=== PATIENT | male | born 1955 | race Asian ===

== ENCOUNTER 2017-12-27 23:18 | Emergency (ER) | payer OTHER ==
[~2017-12-27] VITALS: Ht 182.9 cm; Wt 88.9 kg
[2017-12-27 23:25] VITALS: TEMP 98.8
[2017-12-28 00:04] LABS: PLATELET COUNT 176 K/uL (142-355)
[2017-12-28 00:38] LABS: PARTIAL THROMBOPLASTIN TIME 24.7 SECONDS (24.5-33.6)
[2017-12-28 00:45] LABS: POTASSIUM 3.7 mmol/L (3.6-5.2); SODIUM 137 mmol/L (136-145)
[2017-12-28 05:03] LABS: PARTIAL THROMBOPLASTIN TIME 29.4 SECONDS (24.5-33.6)
[2017-12-28 07:59] VITALS: BP 132/82
[2017-12-31] MEDS ORDERED: LISI20TA11 PO (14:04)
[2017-12-31] MEDS ORDERED: Aspirin 325 MG TABLET PO (14:04)
[2017-12-31] MEDS ORDERED: NITR0.4S SL (14:04)
[2018-01-05] MEDS ORDERED: HYDR10TA47A PO (15:37)
== END 2017-12-28 08:05 | disposition home or self-care (01) ==
LOC: ED 23:18
PROVIDERS: Specialist
DX: R07.89 Other chest pain (principal); R94.31 Abnormal electrocardiogram [ECG] [EKG]; R00.1 Bradycardia, unspecified
CPT/HCPCS: 36415; 80053; 82550; 82553; 83880; 84484; 85027; 85379; 85610; 85730; 93005; 96365; 96366; 99283; 99284; J1650; J2270; J2405; J3490; Q9963

== ENCOUNTER 2017-12-30 10:48 | Emergency (ER) | payer OTHER ==
[~2017-12-30] VITALS: Ht 182.9 cm; Wt 89.8 kg
[2017-12-30 10:53] VITALS: TEMP 98.2
[2017-12-30 11:29] LABS: PLATELET COUNT 162 K/uL (142-355)
[2017-12-30 11:34] LABS: POTASSIUM 3.9 mmol/L (3.6-5.2); SODIUM 134 mmol/L (136-145)
[2017-12-30 13:00] VITALS: BP 158/94
[2017-12-31] MEDS ORDERED: LISI20TA11 PO (14:04)
[2017-12-31] MEDS ORDERED: Aspirin 325 MG TABLET PO (14:04)
[2017-12-31] MEDS ORDERED: NITR0.4S SL (14:04)
[2018-01-05] MEDS ORDERED: HYDR10TA47A PO (15:37)
== END 2017-12-30 13:14 | disposition home or self-care (01) ==
LOC: ED 10:48
PROVIDERS: Family Medicine
DX: R07.89 Other chest pain (principal)
CPT/HCPCS: 36415; 80053; 82550; 84484; 85027; 93005; 96374; 96375; 99284; J0360; J2405

== ENCOUNTER 2018-01-02 20:05 | Emergency (ER) | payer OTHER ==
[~2018-01-02] VITALS: Ht 182.9 cm; Wt 89.8 kg
[~2018-01-02 20:05] MED LIST: Aspirin 325 MG TABLET PO; LISI20TA11 PO; NITR0.4S SL
[2018-01-02 20:59] LABS: PLATELET COUNT 163 K/uL (142-355)
[2018-01-02 21:07] LABS: POTASSIUM 3.4 mmol/L (3.6-5.2)
[2018-01-02 21:21] LABS: PARTIAL THROMBOPLASTIN TIME 27.1 SECONDS (24.5-33.6)
[2018-01-02 22:29] VITALS: BP 154/94; TEMP 98.6
[2018-01-05] MEDS ORDERED: HYDR10TA47A PO (15:37)
== END 2018-01-02 22:31 | disposition home or self-care (01) ==
LOC: ED 20:05
PROVIDERS: Specialist
DX: G89.29 Other chronic pain (principal); M54.89 Other dorsalgia; R07.89 Other chest pain
CPT/HCPCS: 36415; 80053; 80307; 82550; 83880; 84484; 85027; 85379; 85610; 85730; 93005; 99283

== ENCOUNTER 2018-01-12 22:45 | Emergency (ER) | payer OTHER ==
[~2018-01-12] VITALS: Ht 182.9 cm; Wt 89.8 kg
[~2018-01-12 22:45] MED LIST changes: +HYDR10TA47A PO
[2018-01-12 23:36] LABS: PLATELET COUNT 172 K/uL (142-355)
[2018-01-13 00:03] LABS: POTASSIUM 3.4 mmol/L (3.6-5.2); SODIUM 135 mmol/L (136-145)
[2018-01-13 03:45] VITALS: BP 173/98; TEMP 98
== END 2018-01-13 03:50 | disposition home or self-care (01) ==
LOC: ED 22:45
DX: R07.89 Other chest pain (principal); M54.89 Other dorsalgia
CPT/HCPCS: 36415; 80053; 82550; 82553; 84484; 85027; 85379; 93005; 99284

== ENCOUNTER 2018-01-20 14:05 | Emergency (ER) | payer OTHER ==
[~2018-01-20] VITALS: Ht 182.9 cm; Wt 89.8 kg
[2018-01-20 14:16] VITALS: BP 171/103; TEMP 98.1
[2018-01-20 14:36] LABS: PLATELET COUNT 177 K/uL (142-355)
[2018-01-20 14:48] LABS: PARTIAL THROMBOPLASTIN TIME 19.4 SECONDS (24.5-33.6)
[2018-01-20 14:58] LABS: POTASSIUM 5.2 mmol/L (3.6-5.2)
== END 2018-01-20 16:29 | disposition home or self-care (01) ==
LOC: ED 14:05
PROVIDERS: Emergency Medicine
DX: R07.89 Other chest pain (principal)
CPT/HCPCS: 36415; 80053; 82550; 82553; 83880; 84484; 85027; 85379; 85610; 85730; 93005; 99283

== ENCOUNTER 2018-01-29 23:27 | Observation (INO) | payer OTHER ==
[~2018-01-29] VITALS: Ht 182.9 cm; Wt 84.4 kg
[2018-01-29 23:40] VITALS: BP 143/93; TEMP 98.3
[2018-01-30 00:13] LABS: PLATELET COUNT 169 K/uL (142-355)
[2018-01-30 00:24] LABS: PARTIAL THROMBOPLASTIN TIME 23.7 SECONDS (24.5-33.6)
[2018-01-30 00:31] LABS: POTASSIUM 3.6 mmol/L (3.6-5.2)
[2018-01-30 01:52] VITALS: BP 129/81; TEMP 98.2; Ht 182.9 cm; Wt 84.4 kg
[2018-01-30 04:00] VITALS: BP 126/79; TEMP 98.1
[2018-01-30 08:00] VITALS: BP 138/94; TEMP 97.9
--- NOTE | 2018-01-30 10:35 | NUR ---
IV D/C'D WITH TIP INTACT PRESSURE DRESSING APPLIED. D/C INSTRUCTIONS GIVEN VERBALLY. PT D/C'D HOME VIA WC IN STABLE COND.,
== END 2018-01-30 10:35 | disposition home or self-care (01) ==
LOC: ED 23:27 → MED/SURG 01-30 01:08
DX: R07.89 Other chest pain (principal); M54.5 Low back pain; I10 Essential (primary) hypertension
CPT/HCPCS: 36415; 36591; 80053; 82550; 84484; 85027; 85610; 85730; 93005; 99220; 99284; G0378; J1650

== ENCOUNTER 2018-02-19 01:41 | Observation (INO) | payer OTHER ==
[~2018-02-19] VITALS: Ht 182.9 cm; Wt 84.8 kg
[2018-02-19 01:51] VITALS: BP 134/83; TEMP 97.3
[2018-02-19 02:47] LABS: PLATELET COUNT 78 K/uL (142-355)
[2018-02-19 02:58] VITALS: BP 132/78
[2018-02-19 03:18] LABS: POTASSIUM 3.9 mmol/L (3.6-5.2); SODIUM 139 mmol/L (136-145)
[2018-02-19 04:08] VITALS: BP 139/81
[2018-02-19 04:48] VITALS: BP 146/87; TEMP 97.8; Ht 182.9 cm; Wt 84.8 kg
[2018-02-19 08:00] VITALS: BP 213/84; TEMP 97.8
[2018-02-19 11:32] VITALS: BP 154/90; TEMP 98.1
== END 2018-02-19 15:46 | disposition short-term general hospital (02) ==
LOC: ED 01:41 → MED/SURG 03:45
DX: R07.89 Other chest pain (principal); I10 Essential (primary) hypertension; B19.20 Unspecified viral hepatitis C without hepatic coma; N40.0 Benign prostatic hyperplasia without lower urinary tract symptoms; I25.10 Atherosclerotic heart disease of native coronary artery without angina pectoris; J44.9 Chronic obstructive pulmonary disease, unspecified; R06.02 Shortness of breath; H54.8 Legal blindness, as defined in USA; R94.31 Abnormal electrocardiogram [ECG] [EKG]
CPT/HCPCS: 36415; 80053; 80307; 81000; 82550; 84484; 85027; 93005; 99220; 99283; G0378; J1650; J2270

== ENCOUNTER 2018-02-19 15:48 | Outpatient (CLI) | payer OTHER | END 2018-02-19 16:19 | disposition short-term general hospital (02) | LOC: AMB 15:48 | DX: R07.89 Other chest pain (principal); I10 Essential (primary) hypertension; B19.20 Unspecified viral hepatitis C without hepatic coma; N40.0 Benign prostatic hyperplasia without lower urinary tract symptoms; I25.10 Atherosclerotic heart disease of native coronary artery without angina pectoris; J44.9 Chronic obstructive pulmonary disease, unspecified; R06.02 Shortness of breath; H54.8 Legal blindness, as defined in USA; R94.31 Abnormal electrocardiogram [ECG] [EKG] | CPT/HCPCS: A0425; A0427 ==

== ENCOUNTER 2018-03-18 01:01 | Observation (INO) | payer OTHER ==
[~2018-03-18] VITALS: Ht 182.9 cm; Wt 83.1 kg
[2018-03-18 01:28] VITALS: BP 197/114; TEMP 99.4
[2018-03-18 02:25] LABS: PLATELET COUNT 145 K/uL (142-355)
[2018-03-18 03:13] LABS: POTASSIUM 3.8 mmol/L (3.6-5.2)
[2018-03-18 05:05] VITALS: BP 160/95; TEMP 98.3
[2018-03-18 05:59] VITALS: BP 178/98; TEMP 98; Ht 182.9 cm; Wt 83.1 kg
[2018-03-18 08:02] VITALS: BP 140/83; TEMP 98.2
[2018-03-18 10:41] LABS: PARTIAL THROMBOPLASTIN TIME 26.8 SECONDS (24.5-33.6)
[2018-03-18] MEDS ORDERED: Aspirin 325 MG TABLET PO (12:08)
[2018-03-18] MEDS ORDERED: NITR0.4S SL (12:08)
[2018-03-18] MEDS ORDERED: PANTOPRAZOLE 40MG TA PO (12:08)
[2018-03-18] MEDS ORDERED: METO50TA27 PO (12:08)
== END 2018-03-18 12:54 | disposition home or self-care (01) ==
LOC: ED 01:01 → MED/SURG 04:45
DX: R07.89 Other chest pain (principal); I20.8 Other forms of angina pectoris; B19.20 Unspecified viral hepatitis C without hepatic coma; G89.29 Other chronic pain; N40.0 Benign prostatic hyperplasia without lower urinary tract symptoms
CPT/HCPCS: 36415; 80053; 80307; 81000; 82550; 84484; 85027; 85610; 85730; 93005; 96374; 99220; 99284; G0378; J2270

== ENCOUNTER 2018-04-17 12:04 | Emergency (ER) | payer OTHER ==
[~2018-04-17] VITALS: Ht 182.9 cm; Wt 83.0 kg
[~2018-04-17 12:04] MED LIST changes: +METO50TA27 PO; +PANTOPRAZOLE 40MG TA PO
[2018-04-17 12:07] VITALS: TEMP 98.1
[2018-04-17 12:54] LABS: PLATELET COUNT 134 K/uL (142-355)
[2018-04-17 13:27] LABS: POTASSIUM 3.6 mmol/L (3.6-5.2); SODIUM 138 mmol/L (136-145)
[2018-04-17 14:10] VITALS: BP 132/82
== END 2018-04-17 14:56 | disposition left against medical advice (07) ==
LOC: ED 12:04
PROVIDERS: Emergency Medicine
DX: R07.89 Other chest pain (principal)
CPT/HCPCS: 36415; 80053; 82550; 82553; 84484; 85027; 93005; 99283

== ENCOUNTER 2018-06-26 03:16 | Emergency (ER) | payer OTHER ==
[~2018-06-26] VITALS: Ht 182.9 cm; Wt 83.0 kg
[2018-06-26 03:18] VITALS: TEMP 97.9
[2018-06-26 03:51] LABS: PLATELET COUNT 145 K/uL (142-355)
[2018-06-26 04:01] LABS: POTASSIUM 3.4 mmol/L (3.6-5.2)
[2018-06-26 05:55] VITALS: BP 127/80
== END 2018-06-26 05:55 | disposition left against medical advice (07) ==
LOC: ED 03:16
PROVIDERS: Emergency Medicine
DX: R07.89 Other chest pain (principal)
CPT/HCPCS: 36415; 80053; 80307; 82550; 82553; 84484; 85027; 93005; 99283

== ENCOUNTER 2018-08-31 07:00 | Outpatient (CLI) | payer OTHER | END 2018-08-31 07:03 | disposition short-term general hospital (02) | LOC: AMB 07:00 | DX: R07.89 Other chest pain (principal) | CPT/HCPCS: A0425; A0427 ==

== ENCOUNTER 2018-08-31 07:04 | Emergency (ER) | payer OTHER ==
[~2018-08-31] VITALS: Ht 182.9 cm; Wt 102.1 kg
[2018-08-31 07:04] VITALS: BP 173/94; TEMP 98
[2018-08-31 07:29] LABS: PLATELET COUNT 131 K/uL (142-355)
== END 2018-08-31 09:35 | disposition left against medical advice (07) ==
LOC: ED 07:06
DX: I20.8 Other forms of angina pectoris (principal); M54.89 Other dorsalgia
CPT/HCPCS: 80053; 80307; 81000; 82550; 82553; 84484; 85027; 93005; 96374; 96375; 99284

== ENCOUNTER 2018-12-18 20:31 | Emergency (ER) | payer OTHER ==
[~2018-12-18] VITALS: Ht 182.9 cm; Wt 85.3 kg
[2018-12-18 21:20] LABS: PLATELET COUNT 134 K/uL (142-355)
[2018-12-18 21:31] LABS: POTASSIUM 3.7 mmol/L (3.6-5.2)
[2018-12-18 23:00] VITALS: BP 161/92; TEMP 98
== END 2018-12-18 23:00 | disposition home or self-care (01) ==
LOC: ED 20:31
PROVIDERS: Internal Medicine
DX: R07.89 Other chest pain (principal); M54.5 Low back pain; M25.572 Pain in left ankle and joints of left foot
CPT/HCPCS: 36415; 80053; 82550; 84484; 85027; 93005; 96374; 96375; 99284; J2270; J2405

== ENCOUNTER 2019-01-23 05:53 | Emergency (ER) | payer OTHER ==
[~2019-01-23] VITALS: Ht 182.9 cm; Wt 85.3 kg
[2019-01-23 06:25] LABS: PLATELET COUNT 134 K/uL (142-355)
[2019-01-23 06:40] LABS: POTASSIUM 4.2 mmol/L (3.6-5.2)
[2019-01-23 12:40] VITALS: BP 144/78
== END 2019-01-23 13:00 | disposition home or self-care (01) ==
LOC: ED 05:53
PROVIDERS: Internal Medicine
PROC: 0T9B70Z Drainage of Bladder with Drainage Device, Via Natural or Artificial Opening (ICD-10-PCS; principal; 2019-01-23)
DX: R05 Cough (principal); I50.9 Heart failure, unspecified; I10 Essential (primary) hypertension
CPT/HCPCS: 36415; 36600; 51702; 80053; 80307; 82550; 82805; 84484; 85027; 85379; 93005; 94664; 96374; 96375; 96376; 99284; J0360; J1940; J2060; J2270

== ENCOUNTER 2019-03-17 21:45 | Emergency (ER) | payer OTHER ==
[~2019-03-17] VITALS: Ht 182.9 cm; Wt 85.3 kg
[2019-03-17 22:43] LABS: PLATELET COUNT 137 K/uL (142-355)
[2019-03-17 23:02] LABS: POTASSIUM 4.1 mmol/L (3.6-5.2)
[2019-03-18 01:30] VITALS: BP 163/107; TEMP 97.7
== END 2019-03-18 01:41 | disposition home or self-care (01) ==
LOC: ED 21:45
PROVIDERS: Internal Medicine
DX: I50.9 Heart failure, unspecified (principal); R07.89 Other chest pain; I49.3 Ventricular premature depolarization; Z91.19 Patient's noncompliance with other medical treatment and regimen; Z95.810 Presence of automatic (implantable) cardiac defibrillator
CPT/HCPCS: 36415; 80053; 82550; 84484; 85027; 93005; 96374; 96375; 99284; J1940; J2270; J2405

== ENCOUNTER 2019-03-22 10:38 | Outpatient (CLI) | payer OTHER | END 2019-03-22 10:42 | disposition short-term general hospital (02) | LOC: AMB 10:38 | DX: R41.82 Altered mental status, unspecified (principal) | CPT/HCPCS: A0425; A0427 ==

== ENCOUNTER 2019-03-22 10:47 | Emergency (ER) | payer OTHER ==
[~2019-03-22] VITALS: Ht 182.9 cm; Wt 85.3 kg
[2019-03-22 11:15] VITALS: TEMP 98
[2019-03-22 11:26] LABS: PLATELET COUNT 124 K/uL (142-355)
[2019-03-22 11:37] LABS: POTASSIUM 3.6 mmol/L (3.6-5.2)
[2019-03-22 12:25] LABS: PARTIAL THROMBOPLASTIN TIME 24.1 SECONDS (24.5-33.6)
[2019-03-22 13:49] VITALS: BP 147/104
== END 2019-03-22 13:39 | disposition short-term general hospital (02) ==
LOC: ED 10:47
PROVIDERS: Family Medicine
PROC: 0T9B70Z Drainage of Bladder with Drainage Device, Via Natural or Artificial Opening (ICD-10-PCS; principal; 2019-03-22)
DX: I21.3 ST elevation (STEMI) myocardial infarction of unspecified site (principal); R91.8 Other nonspecific abnormal finding of lung field; N39.0 Urinary tract infection, site not specified; Z95.810 Presence of automatic (implantable) cardiac defibrillator; F17.210 Nicotine dependence, cigarettes, uncomplicated
CPT/HCPCS: 51702; 80053; 81000; 82550; 83880; 84484; 85027; 85610; 85730; 87040; 87088; 93005; 96374; 96375; 99285; J0696; J1940; J2270

== ENCOUNTER 2019-03-22 13:41 | Outpatient (CLI) | payer OTHER | END 2019-03-22 14:12 | disposition short-term general hospital (02) | LOC: AMB 13:41 | DX: I21.09 ST elevation (STEMI) myocardial infarction involving other coronary artery of anterior wall (principal) | CPT/HCPCS: A0425; A0427 ==

== ENCOUNTER 2019-04-23 05:47 | Inpatient (IN) | payer OTHER ==
[2019-04-23] VITALS (24 sets, daily range): BP systolic 105–165; BP diastolic 77–115; TEMP 97.4–98; Ht 182.9 cm; Wt 80.9 kg
[~2019-04-23] VITALS: Ht 182.9 cm; Wt 80.9 kg
[2019-04-23 05:58] LABS: PLATELET COUNT 132 K/uL (142-355)
[2019-04-23 06:10] LABS: POTASSIUM 3.5 mmol/L (3.6-5.2)
[2019-04-23 06:39] LABS: PARTIAL THROMBOPLASTIN TIME 21.6 SECONDS (24.5-33.6)
[2019-04-23] MEDS ORDERED: COMBIGAN0.2 MG/0.5 OPTH (15:16)
[2019-04-23] MEDS ORDERED: LUMIGAN0.01 % OPTH (15:17)
[2019-04-23] MEDS ORDERED: FURO20TA67 PO (15:18)
[2019-04-24] VITALS (15 sets, daily range): BP systolic 132–170; BP diastolic 65–109; TEMP 97.7–98.6
[2019-04-24 05:17] LABS: PLATELET COUNT 139 K/uL (142-355)
[2019-04-24 05:31] LABS: POTASSIUM 3.5 mmol/L (3.6-5.2)
== END 2019-04-24 13:40 | disposition left against medical advice (07) | DRG 291 ==
LOC: ED 05:47 → ICU 07:35
PROVIDERS: Emergency Medicine; ADMIT Internal Medicine
DX: I11.0 Hypertensive heart disease with heart failure (principal); J96.00 Acute respiratory failure, unspecified whether with hypoxia or hypercapnia; J44.1 Chronic obstructive pulmonary disease with (acute) exacerbation; B19.20 Unspecified viral hepatitis C without hepatic coma; I50.23 Acute on chronic systolic (congestive) heart failure; I34.1 Nonrheumatic mitral (valve) prolapse; I25.10 Atherosclerotic heart disease of native coronary artery without angina pectoris; N40.0 Benign prostatic hyperplasia without lower urinary tract symptoms
CPT/HCPCS: 36415; 36600; 80053; 82550; 82553; 82805; 83880; 84134; 84484; 85027; 85379; 85610; 85730; 93005; 93306; 94640; 94664; 94760; 96374; 96375; 99285; J0360; J1650; J1940; J2270; J2930; Q9963

== ENCOUNTER 2019-04-29 04:10 | Outpatient (CLI) | payer OTHER ==
[~2019-04-29 04:10] MED LIST changes: +COMBIGAN0.2 MG/0.5 OPTH; +FURO20TA67 PO; +LUMIGAN0.01 % OPTH
== END 2019-04-29 04:13 | disposition short-term general hospital (02) ==
LOC: AMB 04:10
DX: R07.89 Other chest pain (principal); R41.82 Altered mental status, unspecified
CPT/HCPCS: A0425; A0427

== ENCOUNTER 2019-04-29 04:16 | Inpatient (IN) | payer OTHER ==
[~2019-04-29] VITALS: Ht 182.9 cm; Wt 78.9 kg
[2019-04-29] VITALS (9 sets, daily range): BP systolic 132–159; BP diastolic 74–118; TEMP 97.2–97.3; Ht 182.9 cm; Wt 78.9 kg
[2019-04-29 05:06] LABS: PLATELET COUNT 160 K/uL (142-355)
[2019-04-29 09:29] LABS: POTASSIUM 3.8 mmol/L (3.6-5.2)
== END 2019-04-29 15:15 | disposition short-term general hospital (02) | DRG 293 ==
LOC: ED 04:16 → MED/SURG 06:14
PROVIDERS: Internal Medicine; ADMIT Internal Medicine
DX: I50.23 Acute on chronic systolic (congestive) heart failure (principal); K72.90 Hepatic failure, unspecified without coma; R55 Syncope and collapse; I25.10 Atherosclerotic heart disease of native coronary artery without angina pectoris; R07.89 Other chest pain; D53.9 Nutritional anemia, unspecified; I50.9 Heart failure, unspecified; J44.9 Chronic obstructive pulmonary disease, unspecified; N40.0 Benign prostatic hyperplasia without lower urinary tract symptoms; I11.0 Hypertensive heart disease with heart failure; H40.89 Other specified glaucoma
CPT/HCPCS: 51702; 80048; 80053; 80307; 80320; 81000; 82140; 82550; 83735; 83880; 84443; 84484; 85027; 93005; 96360; 96375; 99284; J1650; J1940; J2175; J2550; J3490

== ENCOUNTER 2019-04-29 15:49 | Outpatient (CLI) | payer OTHER | END 2019-04-29 17:00 | disposition short-term general hospital (02) | LOC: AMB 15:49 | DX: R07.89 Other chest pain (principal) | CPT/HCPCS: A0425; A0429 ==

== ENCOUNTER 2019-05-18 05:11 | Outpatient (CLI) | payer OTHER | END 2019-05-18 05:14 | disposition short-term general hospital (02) | LOC: AMB 05:11 | DX: R07.89 Other chest pain (principal) | CPT/HCPCS: A0425; A0427 ==

== ENCOUNTER 2019-06-06 23:47 | Emergency (ER) | payer OTHER ==
[~2019-06-06] VITALS: Ht 182.9 cm; Wt 82.6 kg
[2019-06-06 23:59] VITALS: TEMP 98.2
[2019-06-07 01:24] LABS: PLATELET COUNT 131 K/uL (142-355)
[2019-06-07 01:35] LABS: POTASSIUM 3.8 mmol/L (3.6-5.2)
[2019-06-07 04:14] VITALS: BP 132/99
== END 2019-06-07 04:15 | disposition short-term general hospital (02) ==
LOC: ED 23:47
PROVIDERS: Emergency Medicine
DX: I42.8 Other cardiomyopathies (principal); R79.89 Other specified abnormal findings of blood chemistry; Z95.0 Presence of cardiac pacemaker; Z98.890 Other specified postprocedural states; Z79.899 Other long term (current) drug therapy
CPT/HCPCS: 36415; 36600; 80053; 80307; 82805; 83605; 83735; 83880; 84484; 85027; 93005; 94664; 99284

== ENCOUNTER 2019-06-07 03:54 | Outpatient (CLI) | payer OTHER | END 2019-06-07 05:09 | disposition short-term general hospital (02) | LOC: AMB 03:54 | DX: R06.02 Shortness of breath (principal); R05 Cough; R79.89 Other specified abnormal findings of blood chemistry | CPT/HCPCS: A0425; A0427 ==

== ENCOUNTER 2019-06-13 19:32 | Emergency (ER) | payer OTHER ==
[~2019-06-13] VITALS: Ht 182.9 cm; Wt 77.1 kg
[2019-06-13 20:04] VITALS: TEMP 97.9
[2019-06-13 21:03] LABS: PLATELET COUNT 233 K/uL (142-355)
[2019-06-13 21:15] VITALS: BP 140/101
[2019-06-13 22:09] LABS: POTASSIUM 4.5 mmol/L (3.6-5.2)
== END 2019-06-13 23:17 | disposition home or self-care (01) ==
LOC: ED 19:32
PROVIDERS: Emergency Medicine
DX: R07.89 Other chest pain (principal)
CPT/HCPCS: 36415; 80053; 82550; 84484; 85027; 93005; 99284

== ENCOUNTER 2019-06-24 03:14 | Emergency (ER) | payer OTHER ==
[~2019-06-24] VITALS: Ht 182.9 cm; Wt 77.1 kg
[2019-06-24 03:34] LABS: PLATELET COUNT 144 K/uL (142-355)
[2019-06-24 03:43] LABS: POTASSIUM 3.9 mmol/L (3.6-5.2)
[2019-06-24 06:32] VITALS: BP 153/104; TEMP 98
== END 2019-06-24 06:32 | disposition home or self-care (01) ==
LOC: ED 03:14
PROVIDERS: Emergency Medicine
DX: I42.8 Other cardiomyopathies (principal); R79.89 Other specified abnormal findings of blood chemistry
CPT/HCPCS: 80053; 80307; 83735; 84484; 85027; 93005; 96360; 99284; J7120

== ENCOUNTER 2019-07-03 03:56 | Emergency (ER) | payer OTHER ==
[~2019-07-03] VITALS: Ht 182.9 cm; Wt 77.1 kg
[2019-07-03 04:37] LABS: PLATELET COUNT 142 K/uL (142-355)
[2019-07-03 05:12] LABS: POTASSIUM 3.9 mmol/L (3.6-5.2)
[2019-07-03 11:07] VITALS: BP 139/94; TEMP 98
== END 2019-07-03 11:37 | disposition short-term general hospital (02) ==
LOC: ED 03:56
PROVIDERS: Emergency Medicine
DX: R07.89 Other chest pain (principal); I42.8 Other cardiomyopathies; I50.9 Heart failure, unspecified; R00.0 Tachycardia, unspecified
CPT/HCPCS: 80053; 80307; 82150; 82550; 83690; 83735; 83880; 84484; 85027; 93005; 96374; 96375; 99284; J1940; J2270; J2405

== ENCOUNTER 2019-07-03 11:40 | Outpatient (CLI) | payer OTHER | END 2019-07-03 12:57 | disposition short-term general hospital (02) | LOC: AMB 11:40 | DX: R07.89 Other chest pain (principal); I50.9 Heart failure, unspecified | CPT/HCPCS: A0425; A0427 ==

== ENCOUNTER 2019-09-17 23:09 | Emergency (ER) | payer OTHER ==
[~2019-09-17] VITALS: Ht 182.9 cm; Wt 86.2 kg
[2019-09-18 00:29] LABS: PLATELET COUNT 118 K/uL (142-355)
[2019-09-18 00:31] LABS: POTASSIUM 3.4 mmol/L (3.6-5.2)
[2019-09-18 02:05] VITALS: BP 145/78; TEMP 97.6
== END 2019-09-18 02:05 | disposition home or self-care (01) ==
LOC: ED 23:09
PROVIDERS: Emergency Medicine
DX: I42.8 Other cardiomyopathies (principal); M79.605 Pain in left leg; M79.604 Pain in right leg; I44.7 Left bundle-branch block, unspecified
CPT/HCPCS: 36415; 80053; 83880; 84484; 85027; 93005; 99283

== ENCOUNTER 2019-10-27 01:58 | Observation (INO) | payer OTHER ==
[~2019-10-27] VITALS: Ht 182.9 cm; Wt 84.4 kg
[2019-10-27] VITALS (7 sets, daily range): BP systolic 136–161; BP diastolic 86–115; TEMP 97.5–98.3; Ht 182.9 cm; Wt 84.4 kg
[2019-10-27 02:53] LABS: PLATELET COUNT 124 K/uL (142-355)
[2019-10-27 02:58] LABS: POTASSIUM 3.6 mmol/L (3.6-5.2)
[2019-10-27] MEDS ORDERED: ISOSORB DIN10 MG PO (13:18)
[2019-10-27] MEDS ORDERED: TAMS0.4C PO (13:19)
[2019-10-27] MEDS ORDERED: METO-837 PO (13:21)
[2019-10-27] MEDS ORDERED: CARV6.25 PO (13:22)
[2019-10-27] MEDS ORDERED: SPIRONOLACT25 MG PO (13:25)
[2019-10-27] MEDS ORDERED: LISI10TA11 PO (13:26)
[2019-10-27] MEDS ORDERED: POTA10CA3 PO (13:27)
== END 2019-10-27 15:03 | disposition home or self-care (01) ==
LOC: ED 01:58 → MED/SURG 03:45
PROVIDERS: Family Medicine; ADMIT Emergency Medicine
DX: R07.89 Other chest pain (principal); I42.8 Other cardiomyopathies; H54.8 Legal blindness, as defined in USA; D64.89 Other specified anemias; I25.10 Atherosclerotic heart disease of native coronary artery without angina pectoris; J44.9 Chronic obstructive pulmonary disease, unspecified; B19.20 Unspecified viral hepatitis C without hepatic coma; N40.0 Benign prostatic hyperplasia without lower urinary tract symptoms; H40.89 Other specified glaucoma; I11.0 Hypertensive heart disease with heart failure; I50.9 Heart failure, unspecified; D69.6 Thrombocytopenia, unspecified; Z79.899 Other long term (current) drug therapy; Z51.81 Encounter for therapeutic drug level monitoring
CPT/HCPCS: 36415; 80053; 80307; 82550; 83880; 84484; 85027; 85379; 85610; 85730; 86318; 93005; 99220; 99283; G0378; J1644; J2270; J2405

== ENCOUNTER 2019-10-27 22:33 | Emergency (ER) | payer OTHER ==
[~2019-10-27] VITALS: Ht 182.9 cm; Wt 84.4 kg
[~2019-10-27 22:33] MED LIST changes: +CARV6.25 PO; +ISOSORB DIN10 MG PO; +LISI10TA11 PO; +METO-837 PO; +POTA10CA3 PO; +SPIRONOLACT25 MG PO; +TAMS0.4C PO
[2019-10-27 23:09] LABS: PLATELET COUNT 124 K/uL (142-355)
[2019-10-27 23:35] LABS: POTASSIUM 3.8 mmol/L (3.6-5.2)
[2019-10-27 23:57] LABS: PARTIAL THROMBOPLASTIN TIME 23.7 SECONDS (24.5-33.6)
[2019-10-28 01:40] VITALS: BP 131/98; TEMP 97.9
== END 2019-10-28 01:40 | disposition short-term general hospital (02) ==
LOC: ED 22:33
PROVIDERS: Student in an Organized Health Care Education/Training Program
DX: R07.89 Other chest pain (principal); R79.89 Other specified abnormal findings of blood chemistry; T82.897A Other specified complication of cardiac prosthetic devices, implants and grafts, initial encounter; Z95.810 Presence of automatic (implantable) cardiac defibrillator
CPT/HCPCS: 36415; 80048; 83735; 83880; 84484; 85027; 85610; 85730; 93005; 99284

== ENCOUNTER 2019-10-28 01:42 | Outpatient (CLI) | payer OTHER | END 2019-10-28 02:16 | disposition short-term general hospital (02) | LOC: AMB 01:42 | DX: R07.89 Other chest pain (principal); R79.89 Other specified abnormal findings of blood chemistry; T82.897A Other specified complication of cardiac prosthetic devices, implants and grafts, initial encounter; Z95.810 Presence of automatic (implantable) cardiac defibrillator | CPT/HCPCS: A0425; A0427 ==

== ENCOUNTER 2019-11-08 15:16 | Emergency (ER) | payer OTHER ==
[~2019-11-08] VITALS: Ht 182.9 cm; Wt 82.6 kg
[2019-11-08 15:18] VITALS: TEMP 98
[2019-11-08 15:45] LABS: PLATELET COUNT 145 K/uL (142-355)
[2019-11-08 15:50] LABS: POTASSIUM 3.9 mmol/L (3.6-5.2)
[2019-11-08 16:02] LABS: PARTIAL THROMBOPLASTIN TIME 21.2 SECONDS (24.5-33.6)
[2019-11-08 16:51] VITALS: BP 134/99
== END 2019-11-08 16:55 | disposition home or self-care (01) ==
LOC: ED 15:16
PROVIDERS: Hospitalist
DX: I20.0 Unstable angina (principal); R07.89 Other chest pain; I49.8 Other specified cardiac arrhythmias; F17.210 Nicotine dependence, cigarettes, uncomplicated
CPT/HCPCS: 36415; 80053; 82550; 83880; 84484; 85027; 85610; 85730; 93005; 96374; 96375; 96376; 99284; J1940; J2270; J2405

== ENCOUNTER 2019-11-08 17:01 | Outpatient (CLI) | payer OTHER | END 2019-11-08 18:11 | disposition short-term general hospital (02) | LOC: AMB 17:01 | DX: I20.0 Unstable angina (principal); R07.89 Other chest pain; I49.8 Other specified cardiac arrhythmias | CPT/HCPCS: A0425; A0427 ==

== ENCOUNTER 2019-11-17 10:06 | Observation (INO) | payer OTHER ==
[~2019-11-17] VITALS: Ht 182.9 cm; Wt 83.5 kg
[2019-11-17] VITALS (14 sets, daily range): BP systolic 116–155; BP diastolic 89–108; TEMP 97.9–98.6; Ht 182.9 cm; Wt 83.5 kg
[2019-11-17 11:00] LABS: PLATELET COUNT 135 K/uL (142-355)
[2019-11-17 11:09] LABS: POTASSIUM 3.8 mmol/L (3.6-5.2)
[2019-11-18] VITALS: BP 116/75; TEMP 98.8
[2019-11-18 04:00] VITALS: BP 111/79; TEMP 98.7
[2019-11-18 09:30] VITALS: BP 96/80; TEMP 97.6
[2019-11-18] MEDS ORDERED: LEVAQUIN250 MG PO (11:11)
== END 2019-11-18 11:24 | disposition home or self-care (01) ==
LOC: ED 10:06 → MED/SURG 16:05
PROVIDERS: ADMIT Family Medicine
DX: R07.89 Other chest pain (principal); J44.9 Chronic obstructive pulmonary disease, unspecified; I50.9 Heart failure, unspecified; N40.0 Benign prostatic hyperplasia without lower urinary tract symptoms; H40.89 Other specified glaucoma; I11.0 Hypertensive heart disease with heart failure
CPT/HCPCS: 36415; 80053; 81000; 82550; 84484; 85027; 87040; 93005; 96365; 96366; 96372; 96375; 99220; 99284; G0378; J0696; J1650; J2175; J2405

== ENCOUNTER 2019-11-23 06:26 | Emergency (ER) | payer OTHER ==
[~2019-11-23] VITALS: Ht 182.9 cm; Wt 83.5 kg
[~2019-11-23 06:26] MED LIST changes: +LEVAQUIN250 MG PO
[2019-11-23 06:35] VITALS: TEMP 97.7
[2019-11-23 06:56] LABS: PLATELET COUNT 279 K/uL (142-355)
[2019-11-23 07:14] LABS: POTASSIUM 3.6 mmol/L (3.6-5.2)
[2019-11-23 07:26] LABS: PARTIAL THROMBOPLASTIN TIME 23.3 SECONDS (24.5-33.6)
[2019-11-23 09:22] VITALS: BP 139/59
== END 2019-11-23 09:22 | disposition home or self-care (01) ==
LOC: ED 06:26
PROVIDERS: Hospitalist
DX: R07.89 Other chest pain (principal); I44.7 Left bundle-branch block, unspecified; Z95.810 Presence of automatic (implantable) cardiac defibrillator
CPT/HCPCS: 80053; 80307; 81000; 82150; 82550; 83690; 83880; 84484; 85027; 85610; 85730; 93005; 96374; 96375; 99284; J0360; J1940; J2270; J2405

== ENCOUNTER 2019-11-23 10:44 | Outpatient (CLI) | payer OTHER | END 2019-11-23 10:48 | disposition short-term general hospital (02) | LOC: AMB 10:44 | DX: R39.198 Other difficulties with micturition (principal) | CPT/HCPCS: A0425; A0429 ==

== ENCOUNTER 2019-11-23 10:51 | Emergency (ER) | payer OTHER ==
[~2019-11-23] VITALS: Ht 182.9 cm; Wt 83.5 kg
[2019-11-23 11:00] VITALS: BP 149/87; TEMP 98.6
== END 2019-11-23 12:17 | disposition home or self-care (01) ==
LOC: ED 10:51
PROC: 0T9B70Z Drainage of Bladder with Drainage Device, Via Natural or Artificial Opening (ICD-10-PCS; principal; 2019-11-23)
DX: N13.8 Other obstructive and reflux uropathy (principal); Z95.810 Presence of automatic (implantable) cardiac defibrillator
CPT/HCPCS: 51702; 99283

== ENCOUNTER 2019-12-04 10:35 | Emergency (ER) | payer OTHER ==
[~2019-12-04] VITALS: Ht 182.9 cm; Wt 85.3 kg
[2019-12-04 11:30] VITALS: BP 152/88; TEMP 98.1
== END 2019-12-04 11:30 | disposition home or self-care (01) ==
LOC: ED 10:35
DX: N40.1 Benign prostatic hyperplasia with lower urinary tract symptoms (principal); R33.8 Other retention of urine
CPT/HCPCS: 99282

== ENCOUNTER 2019-12-20 20:46 | Emergency (ER) | payer OTHER ==
[~2019-12-20] VITALS: Ht 182.9 cm; Wt 85.3 kg
[2019-12-20 21:42] LABS: PLATELET COUNT 140 K/uL (142-355)
[2019-12-20 21:55] LABS: PARTIAL THROMBOPLASTIN TIME 21.9 SECONDS (24.5-33.6)
[2019-12-21 00:55] VITALS: BP 115/82; TEMP 98.8
== END 2019-12-21 00:55 | disposition short-term general hospital (02) ==
LOC: ED 20:46
PROVIDERS: Hospitalist
DX: R07.89 Other chest pain (principal); R79.89 Other specified abnormal findings of blood chemistry; I50.9 Heart failure, unspecified; I16.0 Hypertensive urgency; F17.210 Nicotine dependence, cigarettes, uncomplicated
CPT/HCPCS: 36415; 80053; 82150; 82550; 83690; 83880; 84484; 85027; 85379; 85610; 85730; 93005; 96372; 96374; 96375; 99285; J1650; J1940; J2405

== ENCOUNTER 2020-01-02 06:18 | Emergency (ER) | payer OTHER ==
[~2020-01-02] VITALS: Ht 182.9 cm; Wt 85.3 kg
[2020-01-02 07:42] LABS: PLATELET COUNT 137 K/uL (142-355)
[2020-01-02 07:53] LABS: POTASSIUM 3.4 mmol/L (3.6-5.2)
[2020-01-02 13:06] VITALS: BP 135/86; TEMP 98.2
== END 2020-01-02 13:32 | disposition still patient (30) ==
LOC: ED 06:18
PROVIDERS: Family Medicine
DX: R07.89 Other chest pain (principal); M54.89 Other dorsalgia; M79.605 Pain in left leg; M79.604 Pain in right leg; R79.89 Other specified abnormal findings of blood chemistry
CPT/HCPCS: 36415; 80053; 80307; 81000; 82550; 83880; 84484; 85027; 93005; 96374; 99284; J2175

== ENCOUNTER 2020-02-21 17:06 | Emergency (ER) | payer OTHER ==
[~2020-02-21] VITALS: Ht 182.9 cm; Wt 85.3 kg
[2020-02-21 17:38] LABS: PLATELET COUNT 148 K/uL (142-355)
[2020-02-21 17:43] LABS: POTASSIUM 3.8 mmol/L (3.6-5.2)
[2020-02-21 18:25] VITALS: TEMP 97.9
[2020-02-21 19:46] VITALS: BP 122/90
[2020-02-21 21:58] LABS: PARTIAL THROMBOPLASTIN TIME 26.1 SECONDS (24.5-33.6)
== END 2020-02-21 19:48 | disposition short-term general hospital (02) ==
LOC: ED 17:06
PROVIDERS: Hospitalist
DX: S06.0X0A Concussion without loss of consciousness, initial encounter (principal); S00.03XA Contusion of scalp, initial encounter; S22.018A Other fracture of first thoracic vertebra, initial encounter for closed fracture; I50.9 Heart failure, unspecified; Z03.818 Encounter for observation for suspected exposure to other biological agents ruled out; W01.198A Fall on same level from slipping, tripping and stumbling with subsequent striking against other object, initial encounter; Y92.488 Other paved roadways as the place of occurrence of the external cause
CPT/HCPCS: 80053; 80320; 82550; 83880; 84484; 85027; 85610; 85730; 87635; 93005; 96365; 96375; 99285; J0690; J1885; J1940; J2270; J7040; U0002

== ENCOUNTER 2020-05-03 10:18 | Outpatient (CLI) | payer OTHER ==
[2020-05-03 10:55] LABS: PLATELET COUNT 165 K/uL (142-355)
[2020-05-03 11:00] LABS: POTASSIUM 3.6 mmol/L (3.6-5.2)
== END 2020-05-03 19:07 | disposition home or self-care (01) ==
LOC: LABW 10:18
PROVIDERS: Internal Medicine Gastroenterology
DX: B19.20 Unspecified viral hepatitis C without hepatic coma (principal)
CPT/HCPCS: 36415; 80053; 82105; 85007; 85027; 85610; 86706; 86708; 86709; 86803; 87350; 87522; 87902

== ENCOUNTER 2020-05-16 13:39 | Emergency (ER) | payer OTHER ==
[~2020-05-16] VITALS: Ht 182.9 cm; Wt 93.9 kg
[2020-05-16 13:39] VITALS: TEMP 98.2
[2020-05-16 14:16] LABS: PLATELET COUNT 130 K/uL (142-355)
[2020-05-16 14:21] LABS: POTASSIUM 4.3 mmol/L (3.6-5.2)
[2020-05-16 16:00] VITALS: BP 131/86
== END 2020-05-16 16:10 | disposition home or self-care (01) ==
LOC: ED 13:43
PROVIDERS: Emergency Medicine Emergency Medical Services
DX: R07.89 Other chest pain (principal); H10.89 Other conjunctivitis; W18.39XA Other fall on same level, initial encounter; Y92.89 Other specified places as the place of occurrence of the external cause
CPT/HCPCS: 80053; 83880; 84484; 85027; 93005; 96374; 99284; J2270

== ENCOUNTER 2020-08-23 15:17 | Emergency (ER) | payer OTHER ==
[~2020-08-23] VITALS: Ht 182.9 cm; Wt 93.9 kg
[2020-08-23 15:17] VITALS: TEMP 100.3
[2020-08-23 16:39] LABS: PLATELET COUNT 143 K/uL (142-355)
[2020-08-23 16:41] LABS: POTASSIUM 4.1 mmol/L (3.6-5.2)
[2020-08-23 21:57] VITALS: BP 134/95
== END 2020-08-23 21:57 | disposition home or self-care (01) ==
LOC: ED 15:17
PROVIDERS: Family Medicine
DX: R18.8 Other ascites (principal); I50.9 Heart failure, unspecified
CPT/HCPCS: 80053; 81000; 82962; 84484; 85027; 85379; 93005; 96374; 96375; 99284; J1940; J2175; J2405

== ENCOUNTER 2020-11-28 15:19 | Emergency (ER) | payer OTHER ==
[~2020-11-28] VITALS: Ht 182.9 cm; Wt 93.9 kg
[2020-11-28 15:19] VITALS: BP 121/85; TEMP 98.5
[2020-11-28] MEDS ORDERED: CLOP75TA2 PO (15:22)
[2020-11-28] MEDS ORDERED: [UNRECOGNIZED DRUG - OTHER] PO (15:37)
[2020-11-28 15:40] LABS: PLATELET COUNT 138 K/uL (142-355)
[2020-11-28] MEDS ORDERED: MOBIC15 MG PO (15:40)
[2020-11-28] MEDS ORDERED: FURO40TA93 PO (15:41)
[2020-11-28 15:48] LABS: POTASSIUM 3.7 mmol/L (3.6-5.2)
[2020-11-28 15:52] LABS: PARTIAL THROMBOPLASTIN TIME 22.4 SECONDS (24.5-33.6)
== END 2020-11-28 16:50 | disposition home health service (06) ==
LOC: ED 15:19
PROVIDERS: Hospitalist
DX: I50.84 End stage heart failure (principal); Z20.828 Contact with and (suspected) exposure to other viral communicable diseases
CPT/HCPCS: 36415; 80053; 82550; 83880; 84484; 85027; 85610; 85730; 87635; 93005; 96374; 96375; 99284; J1940; J2930; U0003

== ENCOUNTER 2020-12-12 13:27 | Inpatient (IN) | payer OTHER ==
[~2020-12-12] VITALS: Ht 182.9 cm; Wt 98.6 kg
[2020-12-12] VITALS (9 sets, daily range): BP systolic 95–130; BP diastolic 54–75; TEMP 97.6–98.1; Ht 182.9 cm; Wt 98.6 kg
[~2020-12-12 13:27] MED LIST changes: +CLOP75TA2 PO; +FURO40TA93 PO; +MOBIC15 MG PO; +[UNRECOGNIZED DRUG - OTHER] PO
[2020-12-12 14:42] LABS: PLATELET COUNT 161 K/uL (142-355)
[2020-12-12 14:50] LABS: POTASSIUM 4.1 mmol/L (3.6-5.2)
[2020-12-13] VITALS (7 sets, daily range): BP systolic 95–118; BP diastolic 62–82; TEMP 97.5–98.7
--- NOTE | 2020-12-13 02:42 | NUR ---
12/12/20 AT 1945 SHIFT ASSESSMENT COMPLETED AT THIS TIME. PATIENT ASKING FOR SOME WATER WHICH WAS ON HIS BEDSIDE TABLE WHEN I HANDED IT TO HIM HE REACHED OUT FOR IT BUT WASNT ABLE TO SEE IT. I QUESTIONED PATIENT IF HE HAD ANY ISSUES WITH HIS SIGHT AND HE ANSWERED "YES MA'AM IM LEGALLY BLIND." PATIENT STATES HE CAN SEE "A LITTLE, I CAN SEE SHAPES AND SHADOWS BUT NOT REALLY GOOD." I REMINDED HIM OF HOW TO CALL FOR HELP AND WHAT BUTTON TO PUSH AND HE WAS ABLE TO SHOW ME AND IS ABLE TO CALL FOR ASSISTANCE IF NEEDED. CALL LIGHT WITHIN REACH AND WILL CONTINUE TO [facility].
[2020-12-13 05:47] LABS: POTASSIUM 3.8 mmol/L (3.6-5.2)
[2020-12-13] MEDS ORDERED: FUROSEMIDE80 MG PO (06:04)
[2020-12-13] MEDS ORDERED: KLOR-CON SPRIN10 MEQ PO (06:06)
[2020-12-13] MEDS ORDERED: TAMS0.4C PO (06:08)
[2020-12-13] MEDS ORDERED: NITR0.2D21 TD (06:09)
[2020-12-13 06:46] LABS: PLATELET COUNT 136 K/uL (142-355)
--- NOTE | 2020-12-13 11:00 | NUR ---
NOTIFIED OF PT REQUESTING DRINKS. STATED TO PUT THE PT ON A 1500CC FLUID RESTRICTION. PT HAS BEEN NOTIFIED AND EDUCATED ON FLUID RESTRICTION.
--- NOTE | 2020-12-13 19:55 | NUR ---
UPON ENTERING PATIENT'S ROOM, FOUND PATIENT IN LOW FOWLERS POSITION ON RIGHT SIDE. PATIENT WAS QUIET AND ONLY ANSWERED NURSE'S QUESTIONS WITH A "YES" OR "NO". OFFERED TO PLACE A GAUZE ON NURSE CALL BUTTON DUE TO PATIENT BEING DEEMED LEGALLY BLIND. PATIENT V/O HE "CAN SEE THE RED BUTTON". CALL LIGHT WITHIN REACH AND BEDSIDE TABLE WITH PERSONAL BELONGINGS WITHIN REACH. PATIENT ENCOURAGED TO CALL STAFF FOR ANY ASSISTANCE OR NEEDS, PT V/O UNDERSTANDING. PATIENT REQUESTING WATER. INFORMED PATIENT PHYSICIAN ORDERED PATIENT'S FLUID INTAKE BE RESTRICTED TO 1500ML WITHIN 24 HOUR PERIOD AND EDUCATED PATIENT ON THE IMPORTANCE OF LIMITING THE FLUID INTAKE DUE TO THE FLUID OVERLOAD AND THE ADDED STRESS ON THE HEART. PT V/O UNDERSTANDING. NAD NOTED WITH PATIENT AT THIS TIME. APPROXIMATELY 300ML OF CLEAR YELLOW URINE EMPTIED FROM URINAL.
--- NOTE | 2020-12-14 03:02 | NUR ---
PATIENT'S BED LINENS CHANGED AT THIS TIME.
--- NOTE | 2020-12-14 03:06 | NUR ---
PATIENT SITTING UP IN RECLINER AT BEDSIDE AND GIVEN A BATH. PER PATIENT'S REQUEST, PROVIDED PATIENT WITH APPROXIMATELY 45ML OF ICE CHIPS. CALL LIGHT PLACED WITHIN PATIENT'S REACH AND PATIENT INSTRUCTED TO NOTIFY STAFF WHEN READY TO TRANSFER TO BED, PT V/O UNDERSTANDING.
[2020-12-14 04:00] VITALS: BP 109/71; TEMP 98
[2020-12-14 05:57] LABS: POTASSIUM 3.9 mmol/L (3.6-5.2)
[2020-12-14 08:00] VITALS: BP 98/75; TEMP 97.7
[2020-12-14 08:38] LABS: PLATELET COUNT 140 K/uL (142-355)
--- NOTE | 2020-12-14 11:00 | NUR ---
PT RESTING QUIETLY ON L SIDE, IN NAD AT THIS TIME, CALL LIGHT IN EASY REACH. WILL CONTINUE TO MONITOR. BED LOW, LOCKED, SR UP X2 FOR SAFETY.
[2020-12-14 12:00] VITALS: BP 121/73; TEMP 98.5
[2020-12-14 16:00] VITALS: BP 117/69; TEMP 98
--- NOTE | 2020-12-14 17:02 | NUR ---
PT CALLED TO DESK AND STATED HE WAS READY TO BE DISCHARGED HOME, THAT HE HAD "SLEPT ALL HE COULD SLEEP AND THAT HE FELT GREAT AND WAS READY TO GO HOME."
--- NOTE | 2020-12-14 18:23 | NUR ---
PER DR. HICKS, PT WILL BE D/C HOME TOMORROW. PT UPDATED.
[2020-12-14 20:00] VITALS: BP 105/73; TEMP 97.7
[2020-12-15] VITALS: BP 109/77; TEMP 98
[2020-12-15 04:00] VITALS: BP 108/79; TEMP 98
[2020-12-15 04:33] LABS: PLATELET COUNT 149 K/uL (142-355)
[2020-12-15 04:49] LABS: POTASSIUM 4.2 mmol/L (3.6-5.2)
--- NOTE | 2020-12-15 05:06 | NUR ---
PATIENT RESTING QUIETLY WITH EYES CLOSED IN LOW FOWLERS POSITION. NAD NOTED WITH PATIENT AT THIS TIME.
[2020-12-15 08:00] VITALS: BP 106/79; TEMP 98.3
--- NOTE | 2020-12-15 09:55 | NUR ---
DR. DONNELLY NOTIFIED OF PT'S CO ITCHING AND LESIONS TO ABD/CHEST/NECK.
[2020-12-15] MEDS ORDERED: 904272561 PO (10:23)
[2020-12-15] MEDS ORDERED: BACITRACIN EX (10:24)
--- NOTE | 2020-12-15 11:45 | NUR ---
DC INSTRUCTIONS EXPLAINED TO PT WHO VERBALIZE UNDERSTANDING BUT STATED HE WOULD NOT SEE DR. MALHOTRA BECAUSE HOSPICE WANTED HIM TO SEE ANOTHER PROVIDER. PT EDUCATION PROVIDED ON APPROPRIATE DIET, FLUID RESTRICTION, DAILY WEIGHTS, AND STRICT I/O RECORDING. PT VERBALIZED UNDERSTANDING. PT WHEELED TO EXIT FOR TRANSPORT HOME BY FRIEND. PT LEFT FLOOR IN NAD. BELONGINGS SENT HOME WITH PT.
--- NOTE | 2020-12-15 12:01 | NUR ---
YAKOV, INTAKE NURSE AT [facility] [place] NOTIFIED OF PT'S D/C HOME.
== END 2020-12-15 11:45 | disposition home or self-care (01) | DRG 291 ==
LOC: ED 13:27 → MED/SURG 15:59
PROVIDERS: ADMIT Emergency Medicine Emergency Medical Services; ATTEND Internal Medicine Endocrinology, Diabetes & Metabolism
DX: I13.0 Hypertensive heart and chronic kidney disease with heart failure and stage 1 through stage 4 chronic kidney disease, or unspecified chronic kidney disease (principal); I50.43 Acute on chronic combined systolic (congestive) and diastolic (congestive) heart failure; N18.30 Chronic kidney disease, stage 3 unspecified; I25.10 Atherosclerotic heart disease of native coronary artery without angina pectoris; N40.0 Benign prostatic hyperplasia without lower urinary tract symptoms; K21.9 Gastro-esophageal reflux disease without esophagitis; D63.8 Anemia in other chronic diseases classified elsewhere; J44.9 Chronic obstructive pulmonary disease, unspecified
CPT/HCPCS: 36415; 80053; 81000; 83880; 84484; 85007; 85027; 87635; 93005; 96374; 96375; 99284; J1940; U0003

== ENCOUNTER 2021-10-05 02:50 | Emergency (ER) | payer OTHER ==
[~2021-10-05] VITALS: Ht 182.9 cm; Wt 72.6 kg
[2021-10-05 02:50] VITALS: TEMP 97.6
[~2021-10-05 02:50] MED LIST changes: +904272561 PO; +BACITRACIN EX; +FUROSEMIDE80 MG PO; +KLOR-CON SPRIN10 MEQ PO; +NITR0.2D21 TD
[2021-10-05 04:15] LABS: POTASSIUM 3.2 mmol/L (3.6-5.2)
[2021-10-05 04:30] VITALS: BP 103/62
[2021-10-05 04:31] LABS: PLATELET COUNT 264 K/uL (142-355)
== END 2021-10-05 08:35 ==
LOC: ED 02:50
PROVIDERS: Emergency Medicine Emergency Medical Services
DX: R52 Pain, unspecified (principal); Z20.822 Contact with and (suspected) exposure to COVID-19
CPT/HCPCS: 36415; 80053; 80307; 81000; 82140; 82150; 83690; 85007; 85027; 85610; 87635; 96360; 96375; 99284; J2270; J2405; U0003